=== PATIENT | male | born 1935 | race Two or more races ===

== ENCOUNTER 2025-08-13 06:05 | Day surgery (SDC) | payer MEDICAID, SELFPAY ==
--- NOTE | 2025-08-12 07:00 | EKG_ITS ---
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
[2025-08-12 07:39] VITALS: BMI 27.4
[2025-08-12 08:51] LABS: Basophils # (Auto) 0.0 Thou/mm3 (0.0-0.2); Basophils % (Auto) 0 % (0-2.5); Eosinophils # (Auto) 0.1 Thou/mm3 (0.0-0.5); Eosinophils % (Auto) 2 % (0-10); Hematocrit 38.8 % (41.0-53.0); Hemoglobin 12.6 g/dL (13.5-16.0); Immature Granulocytes Auto 0.01 Thou/mm3 (0.00-0.00); Lymphocytes # (Auto) 1.9 Thou/mm3 (1.0-4.8); Lymphocytes % (Auto) 36 % (10-50); Mean Corpuscular HGB Conc 32.5 g/dl (31.0-37.0); Mean Corpuscular Hemoglobin 28.0 pg (25.0-35.0); Mean Corpuscular Volume 86 fL (80-100); Monocytes # (Auto) 0.6 Thou/mm3 (0.0-0.8); Monocytes % (Auto) 12 % (0-12); Neutrophils # (Auto) 2.5 Thou/mm3 (1.8-7.7); Neutrophils % (Auto) 49 % (37-80); Nucleated Red Blood Cell # 0.00 Thou/mm3 (0.00-0.00); Nucleated Red Blood Cell % 0 /100 WBC (0); Platelet Count 191 Thou/mm3 (140-440); RDW Standard Deviation 48.5 fL (35.1-43.9); Red Blood Count 4.50 Miln/mm3 (4.50-5.90); White Blood Count 5.1 Thou/mm3 (3.8-10.6)
[2025-08-12 08:55] LABS: Alanine Aminotransferase 13 U/L (10-49); Albumin, Serum 4.4 gm/dL (3.4-4.8); Albumin/Globulin Ratio 1.8 (1.2-2.2); Alkaline Phosphatase 79 U/L (46-116); Anion Gap 10 (7-16); Aspartate Amino Transferase 23 U/L (0-34); BUN/Creatinine Ratio 14 Ratio (12-20); Bilirubin,Total 0.3 mg/dL (0.3-1.2); Blood Urea Nitrogen 18 mg/dL (9-23); Calcium 9.5 mg/dL (8.3-10.6); Calcium (Corrected) 9.5 mg/dL (8.5-10.1); Carbon Dioxide 27.4 mMol/L (20.0-31.0); Chloride 104 mMol/L (98-107); Creatinine (Component) 1.3 mg/dL (0.6-1.3); Estimated Creatinine Clearance 32.7 mL/min (>60); Globulin 2.4 gm/dL (2.3-3.5); Glucose 97 mg/dL (74-106); Osmolality,Calculated 283 (275-295); Potassium 4.3 mMol/L (3.4-5.1); Sodium 141 mMol/L (136-145); Total Protein 6.8 gm/dL (5.7-8.2); eGFR 53 See Note
--- NOTE | 2025-08-12 15:44 | SUR.PREOP ---
Cardiac records requested from Dr Krishna office, waiting.....
[2025-08-13] VITALS (7 sets, daily range): BP systolic 117–139; BP diastolic 50–74; PULSE 61–70; RESP 14–20; TEMP 36.2–37.2; O2SAT 95–100; BMI 26.8
[2025-08-13] MEDS: RINGERS LACTATED 1000 ML 1,000 ML 20 ML IV (06:54)
--- NOTE | 2025-08-13 08:43 | SUR.PHASEI ---
Pt received from OR in recovery bay 1. pt asleep but responds to voice, breathing unlabored on 6l oxymask. v/s stable. pt dressing to right lower abd cdi. report received from Dr. Quintanilla and Shara Palmer.
--- NOTE | 2025-08-13 08:56 | ESOP_ITS ---
Date of Procedure 08/13/25 Pre Op Diagnosis Right inguinal hernia Post Op Diagnosis Direct right inguinal hernia Lipoma of the spermatic cord Procedure Right inguinal hernia repair with mesh Excision of lipoma of the spermatic cord Findings Large direct right inguinal hernia defect. 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 After administration of general endotracheal anesthesia, patient's right groin was shaved, prepped and draped in standard surgical manner. The right inguinal crease was anesthetized with half percent Marcaine. An approximately 6 cm incision was made and dissection was carried to subcutaneous tissue. The Jules's fascia was divided and the external oblique aponeurosis was opened towards the external ring. The hernia sac and the spermatic cord structures were from the posterior aspect of the external oblique aponeurosis at the level of pubic tubercle. The hernia sac was then meticulously dissected off the spermatic cord structures at the level of internal ring. Patient was noted to have large direct right inguinal hernia. The defect was closed with interrupted [id number] sutures using 0 Vicryl. He was also noted to have moderate size lipoma of the spermatic cord. Lipoma was meticulously dissected of the spermatic cord structures and excised at the level of internal ring. The floor of inguinal canal was then reconstructed with ultra Pro proceed mesh. The mesh was secured with running 2-0 Prolene suture. The mesh secured medially to the pubic tubercle, superiorly into the conjoin tendon, inferiorly and to the shelving edge of inguinal ligament, the mesh was placed around the cord struct ures and tacked under the external oblique aponeurosis laterally. The area was copiously and thoroughly washed and irrigated, all the fluids were suctioned and the suction fluid returned clear. Hemostasis was adequate and satisfactory. External oblique aponeurosis was closed with running 2-0 Vicryl suture, and Jules's fascia was closed with interrupted suture using 3-0 Vicryl. The incision was closed with 4-0 Monocryl in subcutaneous fashion. Instruments, needles and sponge counts were reported to be correct ?2. Patient tolerated the procedure well. He was extubated, breathing spontaneously and without difficulty and was transferred to postanesthesia care in stable condition. Anesthesia GETA and local Pathology / specimen Other (Lipoma of the spermatic cord) Estimated Blood Loss 10 Condition Stable Disposition PACU Surgeon Rodolfo Vega MD Surgical Staff Operation Date: 08/13/25 08:00 Case Staff Anesthesiologist: Abdiel Quintanilla RN First Assistant: Korin Guzman
--- NOTE | 2025-08-13 09:40 | SUR.PHASEII ---
pt awake and alert, breathing unlabored on room air. v/s stable. pt dressing to right lower abd. pt able to ambulate to wheelchair with steady gait. d/c instructions given with daughter Lupe, all questions answered. pt d/c via wheelchair with all belongings.
== END 2025-08-13 09:40 | disposition home or self-care (01) ==
PROVIDERS: Anesthesiology; PCP Family Medicine; Referring Provider Surgery; Visit Provider Surgery
PROC: (CPT 49505; principal; 2025-08-13 08:00)
DX: K40.90 Unilateral inguinal hernia, without obstruction or gangrene, not specified as recurrent (principal); D17.6 Benign lipomatous neoplasm of spermatic cord; Z01.810 Encounter for preprocedural cardiovascular examination
CPT/HCPCS: 49505; 55520; 36415; 80053; 85025; 93005; A4217; A4649; C1781; J0690; J1100; J1885; J2405; J2704; J3010; J3490; J7120